=== PATIENT | female | born 2000 | race Caucasian/White ===

== ENCOUNTER 2022-01-06 09:14 | Emergency (ER) | payer BC, SELFPAY ==
[2022-01-06 09:24] VITALS: BP 116/66; PULSE 78; RESP 16; TEMP 36.9; O2SAT 98; BMI 22.3
--- NOTE | 2022-01-06 09:34 | ED.HA ---
HPI - Headache General Chief Complaint: Headache Stated Complaint: migraine Time Seen by Provider: 01/06/22 09:33 Source: patient and family Mode of arrival: ambulatory Limitations: no limitations History of Present Illness HPI Narrative: 21 yo female student at [employer] of refractory migraines since age 15, anxiety, seizures on lamictal comes in with typical migraine this one lasting two weeks on and off - has been taking oral medications and even went back to [facility] to get occipital injections from Neurologist without relief. In the past she has been to EDs and responded well to IV medications such as toradol/benadryl/reglan. She reports some n/v and acoustic sensitivity. This is typical for her. MD elicited complaint: migraine Pertinent past history: migraines Onset (ago): week(s) (2) Onset description: gradually Location: diffuse Severity: similar to previous episodes Quality & Timing: throbbing, progressively worsening and similar to previous headaches Exacerbating factors: noise Relieving factors: nothing Context: occurred at rest Associated symptoms: nausea, vomiting and sensitivity to sound Treatments prior to arrival: migraine medication and other (occipital injections) Related Data Previous Rx's Medication Instructions Recorded ondansetron 4 mg disintegrating 4 mg PO Q8H PRN nausea and 01/06/22 tablet vomiting #20 tabs Allergies Allergy/AdvReac Type Severity Reaction Status Date / Time No Known Allergies Allergy Unverified 11/28/19 19:44 [No Known Allergies*] Review of Systems Review of Systems: Constitutional : No Fever, No Chills, No Fatigue ENT/Mouth : No sore throat, No Rhinorrhea Eyes: No Eye Pain, No Swelling, No Redness Cardiovascular : No Chest Pain, No SOB, No Dyspnea on Exertion Respiratory : No Cough, No Sputum Gastrointestinal : pos Nausea, pos Vomiting, No Diarrhea, No abdominal Pain Genitourinary : No Dysuria, No Urinary Frequency, No Hematuria, Musculoskeletal : No joint pain, No Myalgias, No Joint Swelling Skin : No Skin Lesions, No rash Neuro : No Weakness, No Numbness, No Dizziness, positive Headache Psych : No Anxiety/Panic, No Depression Heme/Lymph: No Bruising, No Bleeding,No Lymphadenopathy Endocrine : No Polyuria, No Polydipsia All other systems reviewed and are negative PMFSH Past Medical History Attestation statement: The following information was validated with the patient. Medical History Anxiety Migraine Seizure Social History Social History (Updated 01/06/22 @ 09:53 by Apple Cee DO) Patient Tobacco Use Status: Never used Tobacco Advance Directives: No Advance Directives Information Provided: No Physical Exam Vital Signs: Vital Signs: Last Vital Signs Temp 98.5 F 01/06/22 09:24 Pulse 84 01/06/22 12:14 Resp 16 01/06/22 12:14 BP 98/56 L 01/06/22 12:14 Pulse Ox 99 01/06/22 12:14 O2 Del Method 01/06/22 12:14 BMI result Body Mass Index 22.3 Appearance: Alert. Oriented X3. No acute distress. Eyes: Pupils equal, round and reactive to light. ENT: Pharynx normal. TMs normal Neck: Normal inspection. Neck supple. no meningeal signs CVS: Normal heart rate and rhythm. Pulses normal. Respiratory: No respiratory distress. Breath sounds normal. Abdomen: Soft and nontender. Skin: Skin warm and dry. Normal skin color. Normal skin turgor. Extremities: No lower extremity edema. No calf ttp Neuro: Oriented X 3. No motor deficit. No sensory deficit. no drift normal gait, no clonus Course Course Course Narrative: feels much better can be DC home MDM - Headache MDM Narrative Medical decision making narrative: 21 yo female student at [employer] hx of refractory migraines since age 15, anxiety, seizures on lamictal comes in with typical migraine x 2 weeks - this is not unusual for her. Normal neuro exam, afebrile, given typical nature doubt [employer] infection or SAH. Will give toradol/reglan/benadryl and given duration steroids/magnesium. Dispo per clinical improvement. Lab Data Labs: Lab Results 01/06/22 Range/Units 10:03 COVID-19 (JAKY) Negative (Negative) COVID-19 Clin Com See Note Discharge Plan Discharge Clinical Impression: Migraine Qualifiers: Migraine type: without aura Status migrainosus presence: with status migrainosus Intractability: not intractable Qualified Code(s): G43.001 - Migraine without aura, not intractable, with status migrainosus Patient Disposition: Home, Self-Care Instructions: Migraine Headache (ED) Additional Instructions: return to ED for any worsening symptoms or concerns rest today, follow up with your doctors if this continues or returns this week Prescriptions: New ondansetron 4 mg tablet,disintegrating 4 mg PO Q8H PRN (Reason: nausea and vomiting) Qty: 20 0RF Stand Alone Forms: Work/School Release
[2022-01-06 09:46] VITALS: BP 100/64; PULSE 72; RESP 18; O2SAT 100
--- OUTSIDE RECORDS SUMMARY | 2022-01-06 10:12 | XMS_ITS | Summary of Care ---
:2000 Author Organization [facility] y [facility] Address [address] [place] [address]- [facility] [phone] Encounter [id number] [id number] Date(s): 05/18/21 - 05/18/21 [facility] [place] [address] [place] [address]- Encounter Diagnosis Stupor (Final) - Discharge Disposition: Discharge Attending Physician: TESSIE HANKINS MD Referring Physician: CONNIE AGUIAR MD, I Allergies, Adverse Reactions, Alerts No Known Allergies Medications aspirin 81 mg oral capsule Dose: 81 mg, Dose Amount: 1 cap, PO, daily, Entered: 05/18/21 13:39:00 EST Start Date: 05/18/21 Status: OrderedDaytrana 10 mg/9 hr transdermal film, extended release Dose Amount: 1 patch, TOP, daily, Refills: 0, Entered: 05/18/21 13:40:00 EST Start Date: 05/18/21 Status: OrderedLaMICtal 25 mg oral tablet Dose: 25 mg, Dose Amount: 1 tab, PO, BID, Entered: 05/18/21 13:37:00 EST Start Date: 05/18/21 Status: Orderedmelatonin 10 mg oral capsule Dose: 10 mg, Dose Amount: 1 cap, PO, bedtime, Entered: 05/18/21 13:41:00 EST Start Date: 05/18/21 Status: Orderedmetoprolol succinate 25 mg oral capsule, extended release Dose: 25 mg, Dose Amount: 1 cap, PO, daily, Entered: 05/18/21 13:40:00 EST Start Date: 05/18/21 Status: OrderedTrintellix Dose Amount: 1 tab, PO, daily, Entered: 05/18/21 13:38:00 EST Start Date: 05/18/21 Status: Ordered
[2022-01-06] MEDS: 0.9 % Sodium Chloride 1,000 ML 999 ML IV (10:14)
[2022-01-06] MEDS: dexAMETHasone sod phosphate 4 MG/ML VIAL 6 MG IVPUSH (10:14)
[2022-01-06] MEDS: diphenhydrAMINE HCL 50 MG/ML VIAL 25 MG IVPUSH (10:15)
[2022-01-06] MEDS: Ketorolac Tromethamine 30 MG/ML VIAL IVPUSH (10:15)
[2022-01-06] MEDS: Metoclopramide HCl 10 MG/2 ML VIAL IVPUSH (10:15)
[2022-01-06] MEDS: Magnesium Sulfate/H2O 2 GM/50 ML PIGGYBACK IV (10:15)
[2022-01-06 10:22] LABS: COVID-19 Test Negative (Negative); IDNOW Serial# 16C4AD1C
--- NOTE | 2022-01-06 10:29 | PC.NURSE ---
pt complains of migraine 710 for about a week. got meds fro PCP that helped but effect didn't last long. She has a hx of migraines but hasn't had an episode since 2019. Neuro assessment normal. Pupil EVER. Medicated her via IV. IV in place on left ac. NS running with Reglan as a piggyback. will hang mag once reglan is done. pt given a warm blanket and now resting comfortably.
[2022-01-06 12:14] VITALS: BP 98/56; PULSE 84; RESP 16; O2SAT 99
== END 2022-01-06 12:34 | disposition home or self-care (01) ==
PROVIDERS: Emergency Provider Emergency Medicine
DX: G43.001 Migraine without aura, not intractable, with status migrainosus (principal); Z79.899 Other long term (current) drug therapy; Z20.822 Contact with and (suspected) exposure to COVID-19
CPT/HCPCS: 87635; 96361; 96374; 96375; 99284; J1100; J1200; J1885; J2765; J3475